=== PATIENT | male | born 1960 | race Caucasian/White ===

== ENCOUNTER 2022-05-26 06:12 | Day surgery (SDC) | payer OTHER ==
[2022-05-26] MEDS ORDERED: Propofol 200 MG/20 ML SDV IV ONE (06:13)
[2022-05-26] MEDS ORDERED: Glycopyrrolate 0.2 MG/ML 5 ML MDV IV ONE (06:13)
[2022-05-26] MEDS ORDERED: Sodium Chloride 0.9% 10 ML Syringe FLUSH PRN (06:15)
[2022-05-26] MEDS: Lactated Ringers 1,000 ML IV SCH (07:00)
[2022-05-26 08:42] VITALS: BP 117/79; PULSE 87
== END 2022-05-26 08:47 | disposition home or self-care (01) ==
LOC: FB.SDS 06:12
PROVIDERS: ATTEND Surgery
DX: D12.6 Benign neoplasm of colon, unspecified (principal); Z86.010 Personal history of colon polyps; Z79.899 Other long term (current) drug therapy
CPT/HCPCS: 00811; 45385; 88305; J2704; J3490; J7120